=== PATIENT | male | born 1930 | race Caucasian/White ===

== ENCOUNTER → 2017-07-29 | Outpatient (CLI) | payer MEDICARE ==
--- NOTE | 2017-07-29 14:38 | RADIOLOGY REPORT (SQ) ---
EXAM DESCRIPTION: CT CHEST WITHOUT COMPLETED DATE/TIME: 07/29/2017 2:06 pm REASON FOR STUDY: R04.2 HEMOPTYSIS R05 COUGH R04.2 HEMOPTYSIS COMPARISON: Chest CT [facility] 11/04/2016 AP chest 03/24/2015 TECHNIQUE: CT scan performed of the chest without intravenous contrast. Images reviewed with lung, soft tissue and bone windows. Reconstructed coronal and sagittal MPR images reviewed. All images st ored on PACS. All CT scanners at this facility use dose modulation, iterative reconstruction, and/or weight based d osing when appropriate to reduce radiation dose to as low as reasonably achievable (ALARA). [facility]: Dose Right [facility]: CareDose [facility]: Dose Right [facility]: Teradose 4D [facility]: LeadFire RADIATION DOSE: CT Rad equipment meets quality standard of care and radiation dose reduction techniq ues were employed. CTDIvol: 9.8 mGy. DLP: 352 mGy-cm. mGy. LIMITATIONS: No technical limitations. FINDINGS: LUNGS AND PLEURA: Post right upper lobectomy. There is dense consolidation throughout the left lower lobe worrisome for pneumonia. Patchy consolid ation in the right posterior lung base worrisome for pneumonia. No pleural effusions. No pneumothorax. This report was called to Carrie Mccain PA-C at 1430 hours, 07/29/2017. HILAR AND MEDIASTINAL STRUCTURES: No identified masses or abnormal nodes. No obvious aneurysm. Smal l hiatal hernia HEART AND VASCULAR STRUCTURES: No aneurysm. No pericardial effusion. Heavily calcified proximal lef t coronary artery. Moderate cardiomegaly, stable UPPER ABDOMEN: Benign-appearing hepatic cysts. THYROID AND OTHER SOFT TISSUES: No masses. No adenopathy. BONES: No significant finding. HARDWARE: None in the chest. OTHER: No other significant findings. IMPRESSION: Bilateral lower lobe airspace disease left greater than right worrisome for pneumonia TECHNICAL DOCUMENTATION: JOB ID: [id number] Quality ID # [id number]: Final reports with documentation of one or more dose reduction techniques (e.g., Au tomated exposure control, adjustment of the mA and/or kV according to patient size, use of iterative reconstruction technique) 2010 [employer]- All Rights Reserved Reading location - IP/workstation name: [email or web address]
== END ==
LOC: RAD 14:01
PROVIDERS: ATTEND Physician Assistant
DX: R05 Cough (principal); R04.2 Hemoptysis
CPT/HCPCS: 71250; 82565